=== PATIENT | male | born 1975 | race Caucasian/White ===

== ENCOUNTER 2018-03-06 10:02 | Emergency (ER) | payer BC ==
[2018-03-06 13:08] VITALS: BP 139/89
--- NOTE | 2018-03-06 13:11 | ED ---
Wilfred Mcdonnell Stephanie, scribed for Ivan Gold MD on 03/06/18 at 1121 . Psychiatric Complaint - HPI Summary HPI Summary: The pt is a 42 y/o M presenting to the ED with c/o recent stress. The pt denies physical pain. The pt states "Im flipping the hell out." Patient reports that he woke a few weeks ago to find his . States his mother is currently in ICU at [facility] [place]. Patient states his paycheck was wrong he flipped out on his boss. Pt unsure of who called police. [employer] officer reports patient made suicidal and homicidal statements. - History Of Current Complaint Chief Complaint: EDMentalHealth Time Seen by Provider: 03/06/18 10:35 Hx Obtained From: Patient, Medical Records Onset/Duration: Gradual Onset, Lasting Hours, Resolved Timing: Constant Severity Currently: Mild Aggravating Factor(s): Recent Stress Alleviating Factor(s): Nothing Has Suicidal: Reports: Thoughts Has Homicidal: Reports: Thoughts - Allergies/Home Medications Allergies/Adverse Reactions: Allergies Allergy/AdvReac Type Severity Reaction Status Date / Time No Known Allergies Allergy Verified 03/27/15 07:29 Home Medications: Home Medications Albuterol HFA INHALER* [Ventolin HFA Inhaler*] 2 puff INH Q4H PRN 03/06/18 [ History Confirmed 03/06/18] PMH/Surg Hx/FS Hx/Imm Hx Respiratory History: Reports: Hx Asthma Sensory History: Denies: Hx Legally Blind EENT History: Denies: Hx Deafness - Surgical History Surgery Procedure, Year, and Place: NONE Infectious Disease History: No Infectious Disease History: Denies: History Other Infectious Disease, Traveled Outside the [place] in Last 30 Days - Family History Known Family History: Negative: Renal Disease - Social History Occupation: Employed Part-time Lives: Alone Alcohol Use: Rare Hx Substance Use: No Substance Use Type: Reports: None Hx Tobacco Use: Yes Smoking Status (MU): Current Every Day Smoker Type: Cigarettes Amount Used/How Often: 1/2 ppd Have You Smoked in the Last Year: Yes Review of Systems Negative: Fever Negative: Slurred Speech All Other Systems Reviewed And Are Negative: Yes Physical Exam - Summary Physical Exam Summary: Appearance: The patient is well-nourished in no acute distress and in no acute pain. Skin: The skin is warm and dry and skin color reflects adequate perfusion. HEENT: The head is normocephalic and atraumatic. The pupils are equal and reactive. The conjunctivae are clear and without drainage. Nares are patent and without drainage. Mouth reveals moist mucous membranes and the throat is without erythema and exudate. The external ears are intact. The ear canals are patent and without drainage. The tympanic membranes are intact. Neck: the neck is supple with full range of motion and non-tender. There are no carotid bruits. There is no neck vein distension. Respiratory: Chest is non-tender. Lungs are clear to auscultation and breath sounds are symmetrical and equal. Cardiovascular: Heart is regular rate and rhythm. There is no murmur or rub auscultated. There is no peripheral edema and pulses are symmetrical and equal. Abdomen: The abdomen is soft and non-tender. There are normal bowel sounds heard in all four quadrants and there is no organomegaly palpated. Musculoskeletal: There is no back tenderness noted. Extremities are non-tender with full range of motion. There is good capillary refill. There is no peripheral edema or calf tenderness elicited. Neurological: Patient is alert and oriented to person, place and time. The patient has symmetrical motor strength in all four extremities. Cranial nerves are grossly intact. Deep tendon reflexes are symmetrical and equal in all four extremities. Psychiatric: The patient has an appropriate affect and does not exhibit any anxiety or depression. Triage Information Reviewed: Yes Vital Signs On Initial Exam: Initial Vitals Temp Pulse Resp BP Pulse Ox 99.4 F 88 16 132/87 99 03/06/18 10:04 03/06/18 10:04 03/06/18 10:04 03/06/18 10:04 03/06/18 10:04 Vital Signs Reviewed: Yes Diagnostics - Vital Signs Vital Signs Temp Pulse Resp BP Pulse Ox 03/06/18 10:04 99.4 F 88 16 132/87 99 - Laboratory Lab Statement: Any lab studies that have been ordered have been reviewed, and results considered in the medical decision making process. Course/Dx - Course Course Of Treatment: At 11:09, ED physician medically cleared the pt. Mr. Senior has been going through a lot of stress and, as he puts it, 'flipped out' at work when his paycheck seem off. He was calm on arrival here and related that he got uset and said the wrong things to the wrong people. He is regretful. I medically cleared him; he is on no meds and has no other C/O. He was evaluated by the [facility] and they felt that he was safe to be D/C'd. - Differential Dx/Clinical Impression Provider Diagnosis: Situational disturbance Discharge - Sign-Out/Discharge Documenting (check all that apply): Discharge/Admit/Transfer - Discharge Plan Condition: Stable Disposition: HOME Referrals: No Primary Care Phys,NOPCP [Primary Care Provider] - - Billing Disposition and Condition Condition: STABLE Disposition: HOME The documentation as recorded by the Wilfred gant Stephanie accurately reflects the service I personally performed and the decisions made by me, Ivan Gold MD.
== END 2018-03-06 13:20 | disposition home or self-care (01) ==
LOC: ED 10:02
DX: F43.20 Adjustment disorder, unspecified (principal); F17.210 Nicotine dependence, cigarettes, uncomplicated
CPT/HCPCS: 99283